=== PATIENT | male | born 1980 | race Caucasian/White ===

== ENCOUNTER 2017-02-19 23:37 | Emergency (ER) | payer OTHER ==
[~2017-02-19] VITALS: Ht 190.5 cm; Wt 75.7 kg
[~2017-02-19 23:37] MED LIST: OMEP20CA59 PO; TYLOTC500 PO
[2017-02-19 23:40] VITALS: TEMP 36.7; Ht 190.5 cm; Wt 75.7 kg
[2017-02-19] MEDS ORDERED: TROLAMINE SALICYLATE 10% CRM 255 APPLN/85 GM TUBE EXT STA (23:58)
[2017-02-20] MEDS ORDERED: DEXAMETHASONE SOD INJ 10 MG/ML VIAL IM ONE
[2017-02-20] MEDS ORDERED: GABA-113 PO (00:37)
[2017-02-20] MEDS ORDERED: BUPRTAB51 PO (00:38)
[2017-02-20] MEDS ORDERED: OXYCODONE IR HOME PACK PO ONE (00:45)
[2017-02-20 00:52] VITALS: BP 125/83; PULSE 64; O2SAT 98
--- NOTE | 2017-02-20 02:07 | EMERGENCY ROOM VISIT NOTE ---
History First contact with patient: 23:45 Chief Complaint: BACK PAIN Stated Complaint: SEVERE PAIN LEFT SIDE BACK INTO RIBS AND UNDER ARM History of Present Illness The patient is a 36 year old male who presents to the Emergency Room with complaints of ongoing upper back pain for the past several months described as aching, ranging in severity currently 8 or 10 that radiates to his left side. Movement makes it Worse and nothing makes it better. Patient does a lot of manual labor. No prior physical therapy. No injury. Patient does a lot of lifting. Patient denies chest pain, dyspnea, arm pain, arm weakness, loss of bowel or bladder control, saddle anesthesia, fever, chills, leg weakness, IV drug abuse. Patient does smoke. Review of Systems See HPI for pertinent positives & negatives. A total of 10 systems reviewed and were otherwise negative. Past Medical/Surgical History Medical Problems: (1) ESOPHAGEAL REFLUX Family History Diabetes mellitus FH: cancer FHx: heart disease Hypertension Seizures Social History Smoking Status: Current Every Day Smoker Alcohol Use: occasionally Drug Use: none Marital Status: Housing Status: lives with significant other Occupation Status: employed Current/Historical Medications Scheduled Bupropion (Wellbutrin-Xl), 300 MG PO DAILY Gabapentin (Neurontin), 600 MG PO TID Omeprazole (Prilosec), 20 MG PO DAILY Allergies Coded Allergies: Penicillins (Unverified Allergy, Mild, ITHCY, 05/29/16) Ibuprofen (Verified Allergy, Unknown, itching, 05/29/16) Tramadol (Verified Adverse Reaction, Unknown, makes me mean, 05/29/16) pt Physical Exam Vital Signs Date Time Temp Pulse Resp B/P Pulse Ox O2 Delivery O2 Flow Rate FiO2 02/20/17 00:52 64 16 125/83 98 02/19/17 23:40 36.7 85 18 121/85 99 Room Air Pain Rating (0-10): 5.0 Physical Exam VITALS: Vitals are noted on the nurse's note and reviewed by myself. Vital signs stable. GENERAL: White male with a tobacco odor, in no acute distress, nondiaphoretic, well-developed well-nourished. SKIN: Capillary reflex less than 2 seconds. HEENT: Normocephalic. PERRLA. EOMI. Nares patent. Mucous membranes moist. Neck is supple without nuchal rigidity. HEART: Regular rate and rhythm without murmurs gallops or rubs. LUNGS: Clear to auscultation bilaterally without wheezes, rales or rhonchi. No retractions or accessory muscle use. ABDOMEN: Positive bowel sounds x 4. Normal tympanic percussion. Soft, nontender, without masses or organomegaly. Felix sign negative. No guarding or rebound tenderness. MUSCULOSKELETAL: No gross musculoskeletal defects. Midthoracic tenderness without step-offs and no lumbar tenderness on exam. Negative straight leg raise. Patient can walk on toes and heels. 5 out of 5 strength throughout. NEURO: Patient was alert and oriented to person place and time. Normal sensation to light and sharp touch. Deep tendon reflexes 2+ patella bilaterally. No focal neurological deficits. Medical Decision & Procedures Medications Administered Medications (Trade) Dose Ordered Sig/Juan Route Start Time Stop Time Status Last Admin Dose Admin Dexamethasone Sodium Phosphate (Decadron Inj) 10 mg NOW ONCE IM 02/20/17 00:00 02/20/17 00:01 DC 02/20/17 00:02 10 MG Trolamine Salicylate (Myoflex Cream) 1 appln NOW STAT EXT 02/19/17 23:58 02/19/17 23:59 DC 02/20/17 00:18 1 APPLN Oxycodone HCl (Roxicodone Immediate Rel 5MG Home Pack) 1 homepack UD ONCE PO 02/20/17 00:45 02/20/17 00:46 DC 02/20/17 00:49 1 HOMEPACK ED Course Prior records/ancillary studies reviewed. Triage Nursing notes reviewed. Additional history obtained from family. The patient's history was concerning for back pain. Differential diagnosis: Etiologies such as musculoskeletal, disc herniation, fracture, aortic disease, metastatic disease, cord compression, discitis, infection, renal colic, gastrointestinal, acute exacerbation of chronic back pain, sciatica, cauda equina, as well as others were entertained. Physical findings: As above. No focal neurologic findings noted. ER treatment provided: Myoflex cream, Decadron On reassessment the patient felt better. Diagnostics interpreted by me: Imaging studies: CT T SPINE: No fracture or malalignment. Small posterior disc protrusion with probable extrusion seen extending cephalad along the posterior vertebral body of T7 1 by approximately 12 mm. This causes mild spinal canal stenosis. 4 mm pulmonary nodule noted within the left lower lobe. Radiologist: Gary Loya MD This appears to be consistent with thoracic strain with disc protrusion. Patient was neurovascularly and neurologically intact. He was well-appearing. He was strongly encouraged to do physical therapy and to see orthopedic spine for his ongoing issues. He was strongly encouraged to quit smoking. He is advised to return to the ER immediately for inability to walk, severe pain, numbness, tingling, worsening signs or symptoms or as needed. Patient ambulates out of the ER without difficulties. The patient's physical examination and detailed history did not reveal any red flags for back pain such as those listed in the differential diagnosis. Therefore advanced diagnostics and consultations were felt to be unwarranted. By the evaluation outlined above emergent etiologies such as fracture, aortic disease, metastatic disease, infection, renal colic, gastrointestinal, cord compression, cauda equina, as well as others were deemed relatively unlikely. The pt informed about the findings as listed above. All questions were answered and pleased with the treatment. Return instructions were outlined and the patient was discharged in stable condition. Outpatient prescription management: Oxy IR 5mg 1-2 po Q4 hrs prn Referral: The patient was referred back to Ortho spine/ primary care physician for follow- up in 2 to 3 days for a recheck of the current condition. Medical Decision As above Impression Primary Impression: Thoracic myofascial strain Departure Information Dispostion Home / Self-Care Condition GOOD Referrals Laurent Zaidi, DO Forms HOME CARE DOCUMENTATION FORM, IMPORTANT VISIT INFORMATION Patient Instructions Back Pain - [facility], [facility] Additional Instructions DO NOT drive, drink alcohol, operate machinery, or perform dangerous activities today. You were given medications in the ER that can affect your ability to safely function or operate a vehicle. Oxycodone (OxyIR) 5mg: Take 1-2 pills every four hours for breakthrough pain. Avoid alcohol, operating machinery or dangerous equipment, working on ladders or roofs, DRIVING, or situations where being under the influence may be dangerous. It is recommended to use an alpr-ptx-gcnbomz stool softener such as Colace, 100mg twice daily while taking this medication to avoid constipation. Acetaminophen(Tylenol) may be used for fever or pain. Use 1000mg every six hours as needed. Avoid using more than 3000mg in a 24 hour period. This medication can be taken if you need to drive, work, or perform activities which may be dangerous when taking narcotic pain medication. Rest and avoid heavy lifting until your symptoms resolve and then gradually return to full activity. A good rule of thumb is if it hurts your back to perform a certain activity, then it should be avoided until you are healthy again. A heating pad, warm compresses, or a hot shower may help with tight muscles and can be done several times a day as needed. Continue current medications. Return to the ER immediately for any numbness, tingling, severe pain, loss of control of your bowels or bladder, inability to walk, or as needed. Follow up with your primary care physician/orthopedics spine within 3-5 days for a recheck of your current condition. Problem Qualifiers Primary Impression: Thoracic myofascial strain Encounter type: initial encounter Qualified Codes: S29.019A - Strain of muscle and tendon of unspecified wall of thorax, initial encounter
--- NOTE | 2017-02-20 06:43 | DIAGNOSTIC IMAGING REPORT ---
CT SCAN OF THE THORACIC SPINE WITHOUT IV CONTRAST CLINICAL HISTORY: Midthoracic back pain. No reported history of trauma. COMPARISON STUDY: Radiograph of the thoracic spine dated 05/29/2016 TECHNIQUE: CT scan of the thoracic spine is performed from the lower cervical spine to the upper lumbar spine. Images are reviewed in the axial, sagittal, and coronal planes. IV contrast was not administered for this examination. CT DOSE: 519.38 mGy.cm FINDINGS: The skeletal structures are well mineralized. There is no evidence of fracture or malalignment. Vertebral body height and alignment are maintained throughout the thoracic spine. No destructive bony lesion is seen. The transverse and spinous processes are intact. There are large posterior disc bulges at T7-T8 and T9-T10. These contribute to central canal stenosis and abut the ventral cord. These are best seen on sagittal image #49. No additional disc bulge is identified. The posterior ribs appear intact. The paraspinous soft tissues are within normal limits. There is mild emphysema. Subtle groundglass opacities/nodularity are present throughout both lungs. A 5 mm left lower lobe nodule is seen on image #746. IMPRESSION: 1. There is no fracture or malalignment identified in the thoracic spine. 2. There are large posterior disc bulge is seen at T7-T8 and T9-T10. These contribute to acquired compromise of the central canal and abut the ventral cord. 3. Emphysema. 4. There are subtle diffuse groundglass changes throughout the visualized lung parenchyma with mild groundglass nodularity. This could represent a mild infectious/inflammatory pneumonitis or possibly RB-ILD. Additionally, there is an indeterminant 5 mm left lower lobe pulmonary nodule. Follow-up with a nonemergent dedicated CT scan of the chest as well as pulmonary consult is recommended. Electronically signed by: Armani Colón M.D. 02/20/2017 6:41 AM Dictated Date/Time: 02/20/2017 6:33 AM
== END 2017-02-20 00:54 | disposition home or self-care (01) ==
LOC: C.EDB 23:39
DX: S29.012A Strain of muscle and tendon of back wall of thorax, initial encounter (principal); X58.XXXA Exposure to other specified factors, initial encounter; K21.9 Gastro-esophageal reflux disease without esophagitis; F17.200 Nicotine dependence, unspecified, uncomplicated; Z88.0 Allergy status to penicillin; Z88.8 Allergy status to other drugs, medicaments and biological substances; Z83.3 Family history of diabetes mellitus; Z80.9 Family history of malignant neoplasm, unspecified; Z82.49 Family history of ischemic heart disease and other diseases of the circulatory system; Z82.0 Family history of epilepsy and other diseases of the nervous system

== ENCOUNTER 2018-04-24 05:41 | Emergency (ER) | payer SELFPAY ==
[~2018-04-24] VITALS: Ht 188 cm; Wt 69.8 kg
[~2018-04-24 05:41] MED LIST changes: +BUPRTAB51 PO; +GABA-113 PO; -TYLOTC500 PO
[2018-04-24 05:45] VITALS: TEMP 36.8; Ht 188 cm; Wt 69.8 kg
[2018-04-24] MEDS ORDERED: DiphenhydrAMINE HCL 50 MG/ML VIAL IV STA (06:13)
[2018-04-24] MEDS ORDERED: PROCHLORPERAZINE 5 MG/ML 2 ML VIAL IV STA (06:13)
[2018-04-24] MEDS ORDERED: ACETAMINOPHEN IV 100 ML IV ONE (06:15)
[2018-04-24] MEDS ORDERED: SODIUM CHLORIDE 0.9% 1000ML 1,000 ML IV ONE (06:15)
[2018-04-24] MEDS ORDERED: GI COCKTAIL PO ONE (06:15)
[2018-04-24] MEDS ORDERED: PRLSR20 PO (06:16)
[2018-04-24] MEDS ORDERED: RANI150T85 PO (06:16)
[2018-04-24] MEDS ORDERED: LIDOCAINE HCL 2% VISC SOLN 20 ML UDC ONE (06:17)
[2018-04-24] MEDS ORDERED: ALUMINUM/MAGNESIUM SUSP 30 ML UDC ONE (06:17)
[2018-04-24 06:33] LABS: BASO % 0.7 %; BASO ABS # 0.04 K/uL (0-0.2); EOS % 2.2 %; EOS ABS # 0.13 K/uL (0-0.5); HEMATOCRIT 39.6 % (42-52); IG# 0.01 K/uL (0.00-0.02); LYMPH ABS # 1.94 K/uL (1.2-3.4); MEAN CELL VOLUME 90.2 fL (80-100); MEAN CORPUSCULAR HEMOGLOBIN 31.9 pg (25-34); MEAN CORPUSCULAR HGB CONC 35.4 g/dl (32-36); MEAN PLATELET VOLUME 9.8 fL (7.4-10.4); MONO % 7.5 %; MONO ABS # 0.44 K/uL (0.11-0.59); NEUT % 56.4 %; NEUT ABS # 3.31 K/uL (1.4-6.5); PLATELET COUNT 192 K/uL (130-400); WHITE BLOOD COUNT 5.87 K/uL (4.8-10.8)
[2018-04-24 06:54] LABS: ALBUMIN 4.4 gm/dl (3.4-5.0); CALCIUM 9.7 mg/dl (8.5-10.1); CREATININE 0.97 mg/dl (0.60-1.40); POTASSIUM 4.2 mmol/L (3.5-5.1); TOTAL PROTEIN 7.5 gm/dl (6.4-8.2)
--- NOTE | 2018-04-24 06:54 | EMERGENCY ROOM VISIT NOTE ---
History First contact with patient: 05:49 Chief Complaint: ABDOMINAL PAIN Stated Complaint: STOMACH PAIN/PAIN IN TAIL BONE DOWN LEGS Nursing Triage Summary: Pt complains of abdominal and back pain for years. Pt reports the pain has been getting worse. +nausea. Denies any injury. Pt has history of GERD. History of Present Illness The patient is a 37 year old male who presents to the Emergency Room with complaints of abdominal pain and back pain that has been ongoing for the past several years. The patient reports a long-standing history of GERD and he takes Zantac and Prilosec on a daily basis. Patient reports over the past 1-2 days his pain is distinctly worse. His pain has never been this severe. He does not report injury or trauma. He is nauseated without vomiting. He is complaining of some low back pain with intermittent radiation down his legs. The patient has not had fever or chills. No chest pain, chest tightness, or shortness of breath. He has been using the bathroom as normal. The patient is evidently allergic to Advil has not been taking anything [id number]-tyz-swwjrja for his symptoms. He rates the pain a 9/10. Food does not seem to improve or worsen the discomfort. He does not identify aggravating or alleviating factors. He does not have a history of abdominal surgery. Review of Systems More than 10 systems were reviewed and otherwise negative with the exception of history of present illness. Past Medical/Surgical History Medical Problems: (1) ESOPHAGEAL REFLUX Family History Diabetes mellitus FH: cancer FHx: heart disease Hypertension Seizures Social History Smoking Status: Current Every Day Smoker Alcohol Use: occasionally Drug Use: none Marital Status: Housing Status: lives with significant other Occupation Status: employed Current/Historical Medications Scheduled Bupropion (Wellbutrin-Xl), 300 MG PO DAILY Gabapentin (Neurontin), 600 MG PO TID Omeprazole (Prilosec), 20 MG PO HS Ranitidine (Zantac), 150 MG PO BID Physical Exam Vital Signs Date Time Temp Pulse Resp B/P (MAP) Pulse Ox O2 Delivery O2 Flow Rate FiO2 04/24/18 05:45 36.8 95 16 119/82 97 Room Air Physical Exam VITALS: Vitals are noted on the nurse's note and reviewed by myself. Vital signs stable. GENERAL: Well-developed, well-nourished, white male, who is in no acute distress and resting comfortably. Patient is cooperative with the examination. NECK: Supple without nuchal rigidity. No lymphadenopathy. No thyromegaly. Cervical spine is nontender. HEART: Regular rate and rhythm without murmurs gallops or rubs. LUNGS: Clear to auscultation bilaterally without wheezes, rales or rhonchi. No retractions or accessory muscle use. ABDOMEN: Positive normal bowel sounds x 4. Soft with periumbilical abdominal tenderness. No distinct point tenderness is noted. No CVA tenderness. No rebound or guarding. MUSCULOSKELETAL: No muscle atrophy, erythema, or edema noted. Full range of motion in all extremities. No saddle paresthesias. There is mild lumbar tenderness on palpation. NEURO: Patient was alert and oriented to person place and time. CN II through XII grossly intact. No focal neurological deficits. Medical Decision & Procedures Laboratory Results 04/24/18 06:15 Red Blood Count 4.39, Mean Corpuscular Volume 90.2, Mean Corpuscular Hemoglobin 31.9, Mean Corpuscular Hemoglobin Concent 35.4, Mean Platelet Volume 9.8, Neutrophils (%) (Auto) 56.4, Lymphocytes (%) (Auto) 33.0, Monocytes (%) (Auto) 7.5, Eosinophils (%) (Auto) 2.2, Basophils (%) (Auto) 0.7, Neutrophils # (Auto) 3.31, Lymphocytes # (Auto) 1.94, Monocytes # (Auto) 0.44, Eosinophils # (Auto) 0.13, Basophils # (Auto) 0.04 Test 04/24/18 06:10 04/24/18 06:15 White Blood Count 5.87 K/uL (4.8-10.8) Red Blood Count 4.39 M/uL (4.7-6.1) Hemoglobin 14.0 g/dL (14.0-18.0) Hematocrit 39.6 % (42-52) Mean Corpuscular Volume 90.2 fL (80-100) Mean Corpuscular Hemoglobin 31.9 pg (25-34) Mean Corpuscular Hemoglobin Concent 35.4 g/dl (32-36) Platelet Count 192 K/uL (130-400) Mean Platelet Volume 9.8 fL (7.4-10.4) Neutrophils (%) (Auto) 56.4 % Lymphocytes (%) (Auto) 33.0 % Monocytes (%) (Auto) 7.5 % Eosinophils (%) (Auto) 2.2 % Basophils (%) (Auto) 0.7 % Neutrophils # (Auto) 3.31 K/uL (1.4-6.5) Lymphocytes # (Auto) 1.94 K/uL (1.2-3.4) Monocytes # (Auto) 0.44 K/uL (0.11-0.59) Eosinophils # (Auto) 0.13 K/uL (0-0.5) Basophils # (Auto) 0.04 K/uL (0-0.2) RDW Standard Deviation 43.0 fL (36.4-46.3) RDW Coefficient of Variation 13.0 % (11.5-14.5) Immature Granulocyte % (Auto) 0.2 % Immature Granulocyte # (Auto) 0.01 K/uL (0.00-0.02) Medications Administered Medications (Trade) Dose Ordered Sig/Juan Route Start Time Stop Time Status Last Admin Dose Admin Diphenhydramine HCl (Benadryl Inj) 50 mg NOW STAT IV 04/24/18 06:13 04/24/18 06:15 DC 04/24/18 06:20 50 MG Prochlorperazine Edisylate (Compazine Inj) 10 mg NOW STAT IV 04/24/18 06:13 04/24/18 06:15 DC 04/24/18 06:21 10 MG Sodium Chloride 1,000 ml @ 999 mls/hr Q1H1M ONCE IV 04/24/18 06:15 04/24/18 07:15 04/24/18 06:20 999 MLS/HR Acetaminophen 100 ml @ 400 mls/hr NOW ONCE IV 04/24/18 06:15 04/24/18 06:29 DC 04/24/18 06:21 400 MLS/HR Miscellaneous Medication (Gi Cocktail) 24 ml NOW ONCE PO 04/24/18 06:15 04/24/18 06:16 DC 04/24/18 06:15 24 ML ED Course Physical exam and history were performed. Nursing notes, EMR, and Medication List were personally reviewed. Patient appears to have generalized abdominal discomfort bringing him to the ER today. He does have some reproducible tenderness on palpation. The patient has a history of GERD, however he states this feels much worse than his normal GERD. IV access was established and labs were obtained. The patient was hydrated and medicated as above. Because of his symptoms I did elect to perform CT scan of his abdomen and pelvis. The patient remained in stable condition until the time of shift change. The case was discussed with my colleague, Carissa Becerra PA-C, who will assume care at this time. Please see Ms Becerra dictation for further patient course, plan, and disposition. The chart was completed utilizing [employer] Voice Recognition Software. Grammatical errors, random word insertions, pronoun errors, and incomplete sentences are an occasional consequence of this system due to software limitations, ambient noise, and hardware issues. Any formal questions or concerns about the content, text, or information contained within the body of this dictation should be directly addressed to the provider for clarification. . Medical Decision Differential diagnosis: Etiologies such as appendicitis, diverticulitis, PUD, biliary pathology, UTI, pancreatitis, obstruction, mesenteric ischemia, aortic pathology, infections, inflammatory bowel disease, renal colic, as well as others were entertained. Impression Primary Impression: Abdominal pain Departure Information Referrals No Doctor, Assigned (PCP) Patient Instructions [facility] Problem Qualifiers Primary Impression: Abdominal pain Abdominal location: generalized Qualified Codes: R10.84 - Generalized abdominal pain
[2018-04-24] MEDS ORDERED: OPTIRAY 320 IV PRN (07:00)
--- NOTE | 2018-04-24 09:07 | DIAGNOSTIC IMAGING REPORT ---
ABD/PELVIS IV AND ORAL CONT CT DOSE: 346.65 mGy.cm HISTORY: Pain generalized abd pain TECHNIQUE: Multiaxial CT images of the abdomen and pelvis were performed following the use of intravenous and oral contrast. A dose lowering technique was utilized adhering to the principles of ALARA. COMPARISON STUDY: 10/28/2013 FINDINGS: The lung bases are clear. The liver, spleen, gallbladder, pancreas, kidneys, and adrenal glands are within normal limits. No bowel wall thickening or obstruction. The pelvic organs are unremarkable. No suspicious lytic or blastic osseous lesions. IMPRESSION: No significant abnormality identified within the abdomen or pelvis. The above report was generated using voice recognition software. It may contain grammatical, syntax or spelling errors. Electronically signed by: Andriy Becerra M.D. 04/24/2018 9:06 AM Dictated Date/Time: 04/24/2018 8:57 AM
--- NOTE | 2018-04-24 09:31 | EMERGENCY ROOM VISIT NOTE ---
ED Visit Note First contact with patient: 06:56 This patient's case was signed out to me by Virgil Alvarez PA-C at the end of his shift. At this point labs are all reviewed and were unremarkable. A CT of the abdomen and pelvis was pending. DIAGNOSTICS:ABD/PELVIS IV AND ORAL CONT CT DOSE: 346.65 mGy.cm HISTORY: Pain generalized abd pain TECHNIQUE: Multiaxial CT images of the abdomen and pelvis were performed following the use of intravenous and oral contrast. A dose lowering technique was utilized adhering to the principles of ALARA. COMPARISON STUDY: 10/28/2013 FINDINGS: The lung bases are clear. The liver, spleen, gallbladder, pancreas, kidneys, and adrenal glands are within normal limits. No bowel wall thickening or obstruction. The pelvic organs are unremarkable. No suspicious lytic or blastic osseous lesions. IMPRESSION: No significant abnormality identified within the abdomen or pelvis. The above report was generated using voice recognition software. It may contain grammatical, syntax or spelling errors. Electronically signed by: Andriy Becerra M.D. 04/24/2018 9:06 AM The patient was informed of the findings. The caser up will set up an appointment with [facility] for follow-up. The patient was discharged home in stable condition. DIAGNOSIS: GERD, epigastric pain TREATMENT PLAN: Increase omeprazole to 40 mg at bedtime. Continue ranitidine as prescribed. Keep scheduled appointment with [facility] gastroenterology for definitive treatment.
[2018-04-24 09:42] VITALS: BP 106/87; PULSE 68; O2SAT 98
== END 2018-04-24 09:44 | disposition home or self-care (01) ==
LOC: C.EDB 05:42
DX: R10.13 Epigastric pain (principal); K21.9 Gastro-esophageal reflux disease without esophagitis; Z79.899 Other long term (current) drug therapy; Z88.8 Allergy status to other drugs, medicaments and biological substances; F17.200 Nicotine dependence, unspecified, uncomplicated